=== PATIENT | male | born 1970 | race African-American/Black ===

== ENCOUNTER 2016-03-30 15:40 | Emergency (ER) | payer SELFPAY ==
[~2016-03-30] VITALS: Ht 167.6 cm; Wt 54.4 kg
[2016-03-30] VITALS (15 sets, daily range): BP systolic 107–150; BP diastolic 68–100
[2016-03-30] MEDS ORDERED: DiphenhydrAMINE 50mg/ml Inj IM ONE (15:45)
[2016-03-30] MEDS ORDERED: LORazepam Inj 2mg/ml 1ml IM ONE (15:45)
[2016-03-30] MEDS ORDERED: Haloperidol 5mg/ml Inj IM ONE (15:45)
--- NOTE | 2016-03-30 16:49 | Emergency Room Report ---
History of Present Illness General Chief Complaint: Behavioral Complaint Source: EMS (Miguelito Ramos M.D.) Present Illness HPI The patient was brought in from senior living via EMS for bizarre behavior. The officers accompany and then the son that I he was arrested although he states that the patient been acting bizarrely. Is not in custody at this time. Paramedics were unable to perform an assessment as the patient is moving about and they were unable to get vital signs are blood glucose. The patient is not answering any questions at this time (Miguelito Ramos M.D.) Allergies: Coded Allergies: No Known Allergies (Unverified , 03/30/16) Patient History Limited by: medical condition Past Medical History: see triage record Social History Narrative from senior living - suspected drug ingestion Reviewed Nursing Documentation: PMH: Agreed, PSxH: Agreed (Miguelito Ramos M.D.) Nursing Documentation-PMH Past Medical History Deferred: Pt Cognitively Impaired (Miguelito Ramos M.D.) Review of Systems All Other Systems: limited (Miguelito Ramos M.D.) Physical Exam Vital Signs Date Time Temp Pulse Resp B/P Pulse Ox O2 Delivery O2 Flow Rate FiO2 03/30/16 15:40 109 22 98 Room Air 03/30/16 15:47 97.2 150/100 Sp02 EP Interpretation: reviewed, normal General Appearance: mild distress, thin, other - not answering and lashing out with gibberish speech Head: normocephalic Eyes: bilateral eye PERRL, bilateral eye other ENT: dry mucus membranes Neck: supple Respiratory: lungs clear, normal breath sounds Cardiovascular #1: tachycardia Cardiovascular #2: 2+ radial (R) Gastrointestinal: normal inspection, non tender, no mass, non-distended, abnormal bowel sounds - decreased Musculoskeletal: back normal, digits/nails normal, normal range of motion, no calf tenderness, other - no deformity Neurologic: alert, motor strength/tone normal, DTRs symmetric, other - disoriented Psychiatric: other - pshychotic and disoriented Skin: normal inspection, warm/dry (Miguelito Ramos M.D.) Medical Decision Making Diagnostic Impression: Primary Impression: Amphetamine abuse Additional Impressions: Bizarre behavior Psychosis Qualified Codes: F23 - Brief psychotic disorder ER Course The patient presents with bizarre behavior. There is an alligation that he used some drugs. He needs an emergent evaluation including CT, labs, chest x- ray and EKG. He is to be restrained and sedated in order for us to be able to evaluate him. Patient somewhat more calm after sedation. W/U able to proceed. Patient needed more ativan for CT of head. Able to come out of restraints. Labs significant for + amphetamine and elevated CPK. Continued hydration. Still not answer name and not follow commands. Patient signed out to Dr. Card. Laboratory Tests Test 03/30/16 16:47 03/30/16 17:07 03/30/16 17:08 White Blood Count 10.8 K/UL (4.8-10.8) Red Blood Count 3.55 M/UL (4.70-6.10) L Hemoglobin 11.5 G/DL (14.2-18.0) L Hematocrit 35.2 % (42.0-52.0) L Mean Corpuscular Volume 99 FL (80-99) Mean Corpuscular Hemoglobin 32.4 PG (27.0-31.0) H Mean Corpuscular Hemoglobin Concent 32.7 G/DL (32.0-36.0) Red Cell Distribution Width 11.8 % (11.6-14.8) Platelet Count 168 K/UL (150-450) Mean Platelet Volume 7.6 FL (6.5-10.1) Neutrophils (%) (Auto) 74.7 % (45.0-75.0) Lymphocytes (%) (Auto) 13.9 % (20.0-45.0) L Monocytes (%) (Auto) 9.8 % (1.0-10.0) Eosinophils (%) (Auto) 0.1 % (0.0-3.0) Basophils (%) (Auto) 1.5 % (0.0-2.0) Urine Color Yellow Urine Appearance Clear Urine pH 5 (4.5-8.0) Urine Specific [place] 1.020 (1.005-1.035) Urine Protein Negative (NEGATIVE) Urine Glucose (UA) Negative (NEGATIVE) Urine Ketones 3+ (NEGATIVE) H Urine Occult Blood 2+ (NEGATIVE) H Urine Nitrite Negative (NEGATIVE) Urine Bilirubin Negative (NEGATIVE) Urine Urobilinogen Normal MG/DL (0.0-1.0) Urine Leukocyte Esterase Negative (NEGATIVE) Urine RBC 2-4 /HPF (0 - 0) H Urine WBC 0-2 /HPF (0 - 0) Urine Squamous Epithelial Cells None /LPF (NONE/OCC) Urine Bacteria None /HPF (NONE) Urine Opiates Screen Negative (NEGATIVE) Urine Barbiturates Screen Negative (NEGATIVE) Phencyclidine (PCP) Screen Negative (NEGATIVE) Urine Amphetamines Screen Positive (NEGATIVE) H Urine Benzodiazepines Screen Negative (NEGATIVE) Urine Cocaine Screen Negative (NEGATIVE) Urine Marijuana (THC) Screen Negative (NEGATIVE) Sodium Level 139 mEQ/L (135-145) Potassium Level 4.8 mEQ/L (3.4-4.9) Chloride Level 97 mEQ/L (98-107) L Carbon Dioxide Level 23 mEQ/L (20-30) Anion Gap 19 (5-15) H Blood Urea Nitrogen 23 mg/dL (7-23) Creatinine 1.0 mg/dL (0.7-1.2) Estimate Glomerular Filtration Rate > 60 mL/min (>60) Glucose Level 83 mg/dL (74-106) Calcium Level 8.8 mg/dL (8.6-10.2) Total Bilirubin 1.2 mg/dL (0.0-1.2) Direct Bilirubin 0.2 mg/dL (0.1-0.3) Aspartate Amino Transferase (AST) 45 U/L (5-40) H Alanine Aminotransferase (ALT) 26 U/L (3-41) Alkaline Phosphatase 62 U/L (40-129) Total Creatine Kinase 1080 U/L (38-174) H Troponin I < 0.30 ng/mL (<=0.30) Total Protein 6.9 g/dL (6.6-8.7) Albumin 4.1 g/dL (3.5-5.2) Globulin 2.8 g/dL Albumin/Globulin Ratio 1.4 (1.0-2.7) Salicylates Level < 1 mg/dL (10-30) L Serum Alcohol < 10 mg/dL (Miguelito Ramos M.D.) ER Course Patient presents with a drug-induced psychosis. Initially was a [place]. After several hours of sleeping, he is awake now. Walking without any difficulty. Able to give his name. Not suicidal or homicidal. We'll discharge home. This patient is a chronic risk of self injury due to poor impulse control, limited coping skills, and judgment intermittently impaired by intoxication. I believe that the available clinical evidence to suggest that these characteristics derived primarily from personality disorder and are likely very stable over time. Hospitalization would likely attenuate risk of self-harm only during penitentiary period, without lasting risk reduction. Serious self-harm , while possible, would likely be inadvertent, and because of impulsivity, and foreseeable. For these reasons, I do not believe hospitalization would provide meaningful reduction in risk of self-harm. (LAURITA CARD M.D.) EKG Diagnostic Results Rate: tachycardiac ST Segments: no acute changes (Miguelito Ramos M.D.) Rhythm Strip Diag. Results EP Interpretation: yes Rhythm: no PVC's, no ectopy, other - ST (Miguelito Ramos M.D.) Chest X-Ray Diagnostic Results EP Interpretation: Yes Findings: no consolidation, no effusion, no pneumothorax, no acute cardiopulmonary disease Number of Views: 1 (Miguelito Ramos M.D.) CT/MRI/US Diagnostic Results CT/MRI/US Diagnostic Results : Imaging Test Ordered: head Impression nl brain, bones. Possible sinus disease (Miguelito Ramos M.D.) Last Vital Signs Date Time Temp Pulse Resp B/P Pulse Ox O2 Delivery O2 Flow Rate FiO2 03/30/16 23:25 98.0 84 12 107/70 98 Room Air Status: improved (Miguelito Ramos M.D.) Status: improved (LAURITA CARD M.D.) Disposition: HOME, SELF-CARE Condition: Stable Referrals: NOT CHOSEN IPA/,REFERRING (PCP) Additional Instructions: Abstain from drugs and alcohol. Followup with your DrDhaval in 7 days. Follow up with rehabilitation. Return if worse. Miguelito Ramos M.D. Mar 30, 2016 16:49 LAURITA CARD M.D. Mar 31, 2016 02:31
[2016-03-30 17:06] LABS: BASOPHILS % (AUTO) 1.5 % (0.0-2.0); EOSINOPHILS % (AUTO) 0.1 % (0.0-3.0); LYMPHOCYTES % (AUTO) 13.9 % (20.0-45.0); MEAN CORPUSCULAR HEMOGLOBIN 32.4 PG (27.0-31.0); MEAN CORPUSCULAR HGB CONC 32.7 G/DL (32.0-36.0); MEAN CORPUSCULAR VOLUME 99 FL (80-99); MEAN PLATELET VOLUME 7.6 FL (6.5-10.1); MONOCYTES % (AUTO) 9.8 % (1.0-10.0); NEUTROPHILS % (AUTO) 74.7 % (45.0-75.0); PLATELET COUNT 168 K/UL (150-450); RED BLOOD COUNT 3.55 M/UL (4.70-6.10); RED CELL DISTRIBUTION WIDTH 11.8 % (11.6-14.8); WHITE BLOOD COUNT 10.8 K/UL (4.8-10.8)
[2016-03-30 17:34] LABS: APPEARANCE,URINE CLEAR; KETONES,URINE 3+ (NEGATIVE); LEUKOCYTE ESTERASE ,URINE NEGATIVE (NEGATIVE); NITRITE,URINE NEGATIVE (NEGATIVE); PH,URINE 5 (4.5-8.0); PROTEIN,URINE NEGATIVE (NEGATIVE); UROBILINOGEN,URINE NORMAL MG/DL (0.0-1.0)
[2016-03-30 17:48] LABS: WBC,URINE 0-2 /HPF (0 - 0)
[2016-03-30 18:35] LABS: TROPONIN I < 0.30 ng/mL (<=0.30)
[2016-03-30 18:36] LABS: ALANINE AMINOTRANSFERASE 26 U/L (3-41); ALBUMIN/GLOBULIN RATIO 1.4 (1.0-2.7); ALCOHOL < 10 mg/dL; ANION GAP 19 (5-15); ASPARTATE AMINO TRANSFERASE 45 U/L (5-40); CALCIUM 8.8 mg/dL (8.6-10.2); CARBON DIOXIDE 23 mEQ/L (20-30); CHLORIDE 97 mEQ/L (98-107); GLOMERULAR FILTRATION RATE > 60 mL/min (>60); HEMOLYSIS 3; POTASSIUM 4.8 mEQ/L (3.4-4.9); SODIUM 139 mEQ/L (135-145); TOTAL PROTEIN 6.9 g/dL (6.6-8.7)
[2016-03-30 18:52] LABS: BILIRUBIN,DIRECT 0.2 mg/dL (0.1-0.3)
[2016-03-30] MEDS ORDERED: LORazepam Inj 2mg/ml 1ml IV ONE (19:15)
[2016-03-30] MEDS ORDERED: UNOBMED (23:14)
[2016-03-31 05:53] VITALS: BP 107/70
--- NOTE | 2016-03-31 10:30 | Diagnostic Imaging Report ---
\H\CT Brain without Intravenous Contrast INDICATION: \N\Altered level of consciousness\H\ COMPARISON: \N\None\H\ TECHNIQUE: Serial axial images were obtained from the the skull base through the vertex without intravenous contrast. Coronal reformats were obtained. Dose Estimate: Total DLP \N\1506\H\ mGycm CTDIvol \N\70\H\ mGy FINDINGS: The marie white matter differentiation appears normal. There is no evidence of acute intracranial hemorrhage or territorial infarct. The cortical sulci, ventricles and extra-axial CSF spaces are normal in size for patient's age. There is no space occupying lesion, mass effect or midline shift. The visualized paranasal sinuses and mastoid air cells are clear. The osseous structures are unremarkable. \N\\H\IMPRESSION: 1. No acute intracranial hemorrhage, mass effect or midline shift. \N\
--- NOTE | 2016-04-01 10:52 | Diagnostic Imaging Report ---
Clinical history: Cough. Technique: Portable AP chest radiograph was obtained. Comparison: None. Findings: The lungs are well inflated and clear. There is no pneumonia or pulmonary edema. There is no pleural effusion or pneumothorax. The cardiac and mediastinal silhouettes are normal in appearance. The bony thorax is unremarkable. Impression: No acute cardiopulmonary process.
== END 2016-03-31 05:55 | disposition home or self-care (01) ==
LOC: EDBD 15:40 → EMR 16:00
DX: F15.159 Other stimulant abuse with stimulant-induced psychotic disorder, unspecified (principal); R41.82 Altered mental status, unspecified; R05 Cough
CPT/HCPCS: 36415; 70450; 71010; 80053; 80300; 81003; 82248; 82550; 82962; 84484; 85025; 96360; 96372; 96374; 99284; G0480; J1200; J1630; 80329

== ENCOUNTER 2016-06-08 19:30 | Emergency (ER) | payer SELFPAY ==
[~2016-06-08] VITALS: Ht 177.8 cm; Wt 72.6 kg
[2016-06-08] VITALS (19 sets, daily range): BP systolic 113–137; BP diastolic 47–83
[~2016-06-08 19:30] MED LIST: DiphenhydrAMINE 50mg/ml Inj IM ONE; Haloperidol 5mg/ml Inj IM ONE; LORazepam Inj 2mg/ml 1ml IM ONE; UNOBMED
--- NOTE | 2016-06-08 19:59 | Emergency Room Report ---
History of Present Illness General Chief Complaint: Substance Abuse Source: EMS Present Illness HPI The patient is brought in by EMS. They were contacted by [employer] is patient was running around in the middle of the street. The alleged that he's been doing crack cocaine. The patient is unable to answer questions at this time. He basically is babbling and incoherent. The patient presented here for with a very similar course. His evaluated that time and had amphetamine in his system. He received IV hydration and observation. He was able to be discharged after a period of observation. Allergies: Coded Allergies: No Known Allergies (Unverified , 03/30/16) UNABLE TO ASSESS (Unverified , 06/08/16) Patient History Limited by: medical condition Past Medical History: see triage record, old chart reviewed Social History: Reports: drug use Reviewed Nursing Documentation: PMH: Agreed, PSxH: Agreed Nursing Documentation-PMH Past Medical History: Deferred Review of Systems All Other Systems: limited Physical Exam Vital Signs Date Time Temp Pulse Resp B/P Pulse Ox O2 Delivery O2 Flow Rate FiO2 06/08/16 19:20 123 18 100 Room Air 06/08/16 19:28 98.6 127/74 Sp02 EP Interpretation: reviewed, normal General Appearance: no apparent distress, thin, other - agitated, not answering questions Head: normocephalic Eyes: bilateral eye PERRL, bilateral eye normal inspection ENT: dry mucus membranes Neck: supple Respiratory: lungs clear, normal breath sounds Cardiovascular #1: regular rate, rhythm Cardiovascular #2: 2+ radial (L) Gastrointestinal: normal inspection, normal bowel sounds, non tender, no mass, non-distended Musculoskeletal: back normal, gait/station normal, normal range of motion Neurologic: alert, motor strength/tone normal, DTRs symmetric, sensory intact Psychiatric: other - perseveration, agitation and occasionally kicking at staff Skin: normal inspection, warm/dry Medical Decision Making Diagnostic Impression: Primary Impression: Substance abuse Additional Impressions: Renal failure UTI (urinary tract infection) Qualified Codes: N30.00 - Acute cystitis without hematuria ER Course Patient presents with altered mentation. Differential includes drug ingestion, electrolyte imbalance, dehydration, rhabdo, exacerbation of psychiatric illness. The patient is babbling and psychotic at this time. The patient be sedated and receive IV hydration. Evaluation with labs and urinalysis. Kicking out at staff. Not respond to redirection. Restraints applied. Improved - sleeping with sedation. Renal insufficiency. Hydrating patient. Rocephin begun for UTI. Needs re-evaluation in AM. Signed out to Dr. Delaney. Laboratory Tests Test 06/08/16 20:10 06/08/16 20:30 White Blood Count 9.0 K/UL (4.8-10.8) Red Blood Count 4.38 M/UL (4.70-6.10) L Hemoglobin 14.5 G/DL (14.2-18.0) Hematocrit 42.3 % (42.0-52.0) Mean Corpuscular Volume 96 FL (80-99) Mean Corpuscular Hemoglobin 33.1 PG (27.0-31.0) H Mean Corpuscular Hemoglobin Concent 34.3 G/DL (32.0-36.0) Red Cell Distribution Width 12.5 % (11.6-14.8) Platelet Count 167 K/UL (150-450) Mean Platelet Volume 8.1 FL (6.5-10.1) Neutrophils (%) (Auto) 76.8 % (45.0-75.0) H Lymphocytes (%) (Auto) 10.6 % (20.0-45.0) L Monocytes (%) (Auto) 11.3 % (1.0-10.0) H Eosinophils (%) (Auto) 0.0 % (0.0-3.0) Basophils (%) (Auto) 1.3 % (0.0-2.0) Sodium Level 141 mEQ/L (135-145) Potassium Level 4.5 mEQ/L (3.4-4.9) Chloride Level 94 mEQ/L (98-107) L Carbon Dioxide Level 23 mEQ/L (20-30) Anion Gap 24 (5-15) H Blood Urea Nitrogen 66 mg/dL (7-23) H Creatinine 3.0 mg/dL (0.7-1.2) H Estimate Glomerular Filtration Rate 27.9 mL/min (>60) Glucose Level 176 mg/dL (74-106) H Calcium Level 10.3 mg/dL (8.6-10.2) H Total Bilirubin 1.8 mg/dL (0.0-1.2) H Direct Bilirubin 0.3 mg/dL (0.1-0.3) Aspartate Amino Transferase (AST) 63 U/L (5-40) H Alanine Aminotransferase (ALT) 33 U/L (3-41) Alkaline Phosphatase 99 U/L (40-129) Total Creatine Kinase 3420 U/L (38-174) H Total Protein 8.5 g/dL (6.6-8.7) Albumin 5.5 g/dL (3.5-5.2) H Globulin 3.0 g/dL Albumin/Globulin Ratio 1.8 (1.0-2.7) Salicylates Level < 1 mg/dL (10-30) L Acetaminophen Level < 10 ug/mL (10-30) L Serum Alcohol < 10 mg/dL Urine Color Yellow Urine Appearance Clear Urine pH 5 (4.5-8.0) Urine Specific [place] 1.025 (1.005-1.035) Urine Protein 2+ (NEGATIVE) H Urine Glucose (UA) Negative (NEGATIVE) Urine Ketones 2+ (NEGATIVE) H Urine Occult Blood 4+ (NEGATIVE) H Urine Nitrite Negative (NEGATIVE) Urine Bilirubin Negative (NEGATIVE) Urine Urobilinogen 1 MG/DL (0.0-1.0) H Urine Leukocyte Esterase 1+ (NEGATIVE) H Urine RBC 10-15 /HPF (0 - 0) H Urine WBC 5-10 /HPF (0 - 0) H Urine Squamous Epithelial Cells None /LPF (NONE/OCC) Urine Amorphous Sediment Moderate /LPF (NONE) H Urine Bacteria Many /HPF (NONE) H Urine Fine Granular Casts 2-4 /LPF (NONE) H Urine Opiates Screen Negative (NEGATIVE) Urine Barbiturates Screen Negative (NEGATIVE) Phencyclidine (PCP) Screen Negative (NEGATIVE) Urine Amphetamines Screen Positive (NEGATIVE) H Urine Benzodiazepines Screen Negative (NEGATIVE) Urine Cocaine Screen Negative (NEGATIVE) Urine Marijuana (THC) Screen Positive (NEGATIVE) H EKG Diagnostic Results Rate: tachycardiac ST Segments: no acute changes Rhythm Strip Diag. Results EP Interpretation: yes Rhythm: no PVC's, no ectopy, other - ST Last Vital Signs Date Time Temp Pulse Resp B/P Pulse Ox O2 Delivery O2 Flow Rate FiO2 06/09/16 00:05 80 10 100 Room Air 06/08/16 23:00 137/83 06/08/16 19:28 98.6 Status: improved Miguelito Ramos M.D. Jun 08, 2016 19:59
[2016-06-08 20:33] LABS: BASOPHILS % (AUTO) 1.3 % (0.0-2.0); LYMPHOCYTES % (AUTO) 10.6 % (20.0-45.0); MEAN CORPUSCULAR HEMOGLOBIN 33.1 PG (27.0-31.0); MEAN CORPUSCULAR HGB CONC 34.3 G/DL (32.0-36.0); MEAN CORPUSCULAR VOLUME 96 FL (80-99); MEAN PLATELET VOLUME 8.1 FL (6.5-10.1); MONOCYTES % (AUTO) 11.3 % (1.0-10.0); NEUTROPHILS % (AUTO) 76.8 % (45.0-75.0); PLATELET COUNT 167 K/UL (150-450); RED BLOOD COUNT 4.38 M/UL (4.70-6.10); RED CELL DISTRIBUTION WIDTH 12.5 % (11.6-14.8)
[2016-06-08 20:37] LABS: ACETAMINOPHEN < 10 ug/mL (10-30); ALANINE AMINOTRANSFERASE 33 U/L (3-41); ALBUMIN/GLOBULIN RATIO 1.8 (1.0-2.7); ALCOHOL < 10 mg/dL; ANION GAP 24 (5-15); ASPARTATE AMINO TRANSFERASE 63 U/L (5-40); CALCIUM 10.3 mg/dL (8.6-10.2); CARBON DIOXIDE 23 mEQ/L (20-30); CHLORIDE 94 mEQ/L (98-107); GLOMERULAR FILTRATION RATE 27.9 mL/min (>60); HEMOLYSIS 12; POTASSIUM 4.5 mEQ/L (3.4-4.9); SODIUM 141 mEQ/L (135-145); TOTAL PROTEIN 8.5 g/dL (6.6-8.7)
[2016-06-08 21:09] LABS: APPEARANCE,URINE CLEAR; KETONES,URINE 2+ (NEGATIVE); LEUKOCYTE ESTERASE ,URINE 1+ (NEGATIVE); NITRITE,URINE NEGATIVE (NEGATIVE); PH,URINE 5 (4.5-8.0); PROTEIN,URINE 2+ (NEGATIVE); UROBILINOGEN,URINE 1 MG/DL (0.0-1.0)
[2016-06-08 21:20] LABS: AMORPHOUS SEDIMENT,UR MODERATE /LPF; BACTERIA,URINE MANY /HPF
[2016-06-08 21:20] LABS: BILIRUBIN,DIRECT 0.3 mg/dL (0.1-0.3)
[2016-06-08] MEDS ORDERED: cefTRIAXone 1 GM in NS 55 ML IVPB ONE (22:30)
[2016-06-09] VITALS (8 sets, daily range): BP systolic 106–129; BP diastolic 68–88
[2016-06-09 04:59] LABS: CALCIUM 8.2 mg/dL (8.6-10.2); CREATININE 1.6 mg/dL (0.7-1.2); GLOMERULAR FILTRATION RATE 57.4 mL/min (>60); POTASSIUM 4.4 mEQ/L (3.4-4.9)
[2016-06-09] MEDS ORDERED: KEFLEX500 MG ORAL (05:21)
== END 2016-06-09 05:32 | disposition home or self-care (01) ==
LOC: EDBD 19:30 → EMR 19:35
DX: F19.10 Other psychoactive substance abuse, uncomplicated (principal); N19 Unspecified kidney failure; N30.00 Acute cystitis without hematuria; R00.0 Tachycardia, unspecified
CPT/HCPCS: 36415; 80048; 80053; 80300; 81003; 82248; 82550; 85025; 87086; 93005; 96360; 96361; 96372; 96374; 96375; 99284; G0480; J0696; J1200; J1630; 80329